=== PATIENT | female | born 1985 ===

== ENCOUNTER 2021-03-24 09:58 | Outpatient (CLI) | payer OTHER | END 2021-03-24 11:30 | disposition home or self-care (01) | LOC: PRENATAL 09:58 | PROVIDERS: ATTEND Obstetrics & Gynecology Maternal & Fetal Medicine | DX: O35.0XX1 Maternal care for (suspected) central nervous system malformation in fetus, fetus 1 (principal); O35.3XX1 Maternal care for (suspected) damage to fetus from viral disease in mother, fetus 1; O98.512 Other viral diseases complicating pregnancy, second trimester; Z36.89 Encounter for other specified antenatal screening; Z3A.21 21 weeks gestation of pregnancy ==

== ENCOUNTER 2021-06-16 08:48 | Outpatient (CLI) | payer OTHER | END 2021-06-16 09:50 | disposition home or self-care (01) | LOC: PRENATAL 08:48 | PROVIDERS: ATTEND Obstetrics & Gynecology Maternal & Fetal Medicine | DX: O26.849 Uterine size-date discrepancy, unspecified trimester (principal); O34.219 Maternal care for unspecified type scar from previous cesarean delivery; Z3A.32 32 weeks gestation of pregnancy ==